=== PATIENT | male | born 1970 | race Caucasian/White ===

== ENCOUNTER 2017-03-22 22:42 | Emergency (ER) | payer MEDICARE ==
[~2017-03-22] VITALS: Ht 185.4 cm; Wt 105.8 kg
[~2017-03-22 22:42] MED LIST: IBUP600T26 PO; METH750T2 PO; PRED20 PO
[2017-03-22 22:45] VITALS: BP 174/100; PULSE 94; RESP 26; TEMP 98.5; O2SAT 99
[2017-03-22] MEDS ORDERED: NITROGLYCERIN 0.4 MG SL 25 TABS/BTL SL ONE (23:00)
[2017-03-22] MEDS ORDERED: SODIUM CHLORIDE 0.9% FLUSH 10 ML FLUSH IVF PRN (23:00)
[2017-03-22] MEDS ORDERED: ASPIRIN 325 MG TAB PO ONE (23:00)
[2017-03-22 23:07] LABS: AUTOMATED NEUTROPHIL # 7.7 TH/MM3 (1.8-7.7); BASOPHIL # 0.1 TH/MM3 (0-0.2); BASOPHIL % 0.7 % (0.0-2.0); EOSINOPHIL # 0.3 TH/MM3 (0-0.4); EOSINOPHIL % 2.2 % (0.0-4.0); HEMATOCRIT 47.5 % (39.0-51.0); LYMPH % 34.7 % (9.0-44.0); LYMPHOCYTE # 4.8 TH/MM3 (1.0-4.8); MEAN CELL VOLUME 89.6 FL (80.0-100.0); MEAN CORPUSCULAR HGB CONC 33.5 % (32.0-36.0); MONO % 6.8 % (0.0-8.0); NEUT % 55.6 % (16.0-70.0); PLATELET COUNT 244 TH/MM3 (150-450); RED CELL DISTRIBUTION WIDTH 13.8 % (11.6-17.2); WHITE BLOOD COUNT 13.8 TH/MM3 (4.0-11.0)
[2017-03-22 23:08] LABS: CHLORIDE 104 MEQ/L (98-107); POTASSIUM 3.5 MEQ/L (3.5-5.1); SODIUM (NA) 140 MEQ/L (136-145)
--- NOTE | 2017-03-22 23:08 | RADHPO ---
EXAM DATE/TIME: 03/22/2017 22:52 [place] COMPARISON: CHEST PA & LAT, February 23, 2015, 17:19. INDICATIONS : Shortness of breath, cough, and congestion. MEDICAL HISTORY : None. SURGICAL HISTORY : None. ENCOUNTER: Initial ACUITY: 3 days PAIN SCORE: 3/10 LOCATION: Bilateral chest FINDINGS: The lungs are clear without infiltrate, nodule, or mass. There is no appreciable pleural effusion fo r technique. Heart and mediastinum are unremarkable. CONCLUSION: No acute cardiopulmonary disease. Elizabeth Garcai MD on March 22, 2017 at 23:06 Board Certified Radiologist. This report was verified electronically.
[2017-03-22 23:11] LABS: ANION GAP 13 MEQ/L (5-15); BICARBONATE 23.3 MEQ/L (21.0-32.0); BLOOD UREA NITROGEN 11 MG/DL (7-18)
--- NOTE | 2017-03-22 23:13 | PD ---
HPI Chief Complaint: Respiratory Symptoms Time Seen by Provider: 22:47 Travel History International Travel<30 days: No Contact w/Intl Traveler<30days: No Traveled to known affect area: No History of Present Illness HPI 47 yo M c/o cough for 3 days leading to post-tussive emesis, generalized chest pressure of moderate severity, diaphoresis and dyspnea. He traveled to [place] about a week ago and upon return here developed his cough. Pt smokes cigarettes approx 10-20/daily. Sweats at home reported however denies COPD diagnosis. Phlegm is produced with cough. OTC cough medication was not helpful. No sick contacts. PFSH Past Medical History Diminished Hearing: No Kidney Stones: Yes ?: Not Social History Alcohol Use: Yes (Rare) Tobacco Use: Yes (1ppd) Substance Use: No Allergies-Medications (Allergen,Severity, Reaction): Coded Allergies: No Known Allergies (Unverified , 07/01/15) Reported Meds & Prescriptions Reported Meds & Active Scripts Active Guaifenesin-Codeine Liq 100-10 Mg/5 Ml Soln 10 Ml PO HS PRN Tessalon Perles (Benzonatate) 100 Mg Cap 200 Mg PO TID PRN Proair Hfa 8.5 GM Inh (Albuterol Sulfate) 90 Mcg/Act Aer 2 Puff INH Q6H PRN 108 mcg/actuation Azithromycin 250 Mg Tab 250 Mg PO DAILY 4 Days Prednisone 20 Mg Tab 40 Mg PO DAILY 4 Days Take 40 mg (2 tablets) daily for 5 days Ibuprofen 600 Mg Tab 600 Mg PO Q8H PRN Methocarbamol 750 Mg Tab 750 Mg PO Q8HR PRN Deltasone (Prednisone) 20 Mg Tab 20 Mg PO DIRECTED 2 TABS PO DAILY FOR 3 DAYS,THEN 1 TAB PO DAILY FOR 3 DAYS. Review of Systems Except as stated in HPI: all other systems reviewed are Neg General / Constitutional: Positive: Fever (hot sweats), Chills Cardiovascular: Positive: Chest Pain or Discomfort, Diaphoresis, No: Tachycardia Respiratory: Positive: Cough, Shortness of Breath Physical Exam Narrative GENERAL: 47 yo M, WNWD, moderate respiratory distress 2/2 coughing SKIN: Diaphoretic. Intact. HEAD: Atraumatic. Normocephalic. EYES: Pupils equal and round. No scleral icterus. No injection or drainage. ENT: No nasal bleeding or discharge. Mucous membranes pink and moist. NECK: Trachea midline. No JVD. CARDIOVASCULAR: Regular rate and rhythm. RESPIRATORY: Frequently coughing. Minimal tachypnea. No accessory muscle use. Lung sounds clear. GASTROINTESTINAL: Abdomen soft, non-tender, nondistended. Hepatic and splenic margins not palpable. MUSCULOSKELETAL: Extremities without clubbing, cyanosis, or edema. No obvious deformities. NEUROLOGICAL: Awake and alert. No obvious cranial nerve deficits. Motor grossly within normal limits. Five out of 5 muscle strength in the arms and legs. Normal speech. PSYCHIATRIC: Appropriate mood and affect; insight and judgment normal. Data Data Last Documented VS Vital Signs Date Time Temp Pulse Resp B/P Pulse Ox O2 Delivery O2 Flow Rate FiO2 03/22/17 23:27 98.3 78 22 140/84 98 Room Air VS reviewed Orders Electrocardiogram (03/22/17 22:47) Basic Metabolic Panel (Bmp) (03/22/17 22:47) Ckmb (Isoenzyme) Profile (03/22/17 22:47) Complete Blood Count With Diff (03/22/17 22:47) Magnesium (Mg) (03/22/17 22:47) Prothrombin Time / Inr (Pt) (03/22/17 22:47) Act Partial Throm Time (Ptt) (03/22/17 22:47) Troponin I (03/22/17 22:47) Chest, Single Ap (03/22/17 22:47) Ecg Monitoring (03/22/17 22:47) Bilateral Bp Monitoring (03/22/17 22:47) Iv Access Insert/Monitor (03/22/17 22:47) Oximetry (03/22/17 22:47) Oxygen Administration (03/22/17 22:47) Aspirin (Aspirin) (03/22/17 23:00) Sodium Chloride 0.9% Flush (Ns Flush) (03/22/17 23:00) Nitroglycerin Sl (Nitrostat Sl) (03/22/17 23:00) Guaifen-Cod 200-20 Mg/10ml Liq (Robituss (03/22/17 23:15) Albuterol-Ipratropium Neb (Duoneb Neb) (03/22/17 23:15) Benzonatate (Tessalon) (03/22/17 23:15) Methylprednisolone So Succ Inj (Solumedr (03/22/17 23:15) Sodium Chlor 0.9% 1000 Ml Inj (Ns 1000 M (03/22/17 23:15) Albuterol-Ipratropium Neb (Duoneb Neb) (03/22/17 23:30) Labs Laboratory Tests Test 03/22/17 22:50 White Blood Count 13.8 TH/MM3 Red Blood Count 5.30 MIL/MM3 Hemoglobin 15.9 GM/DL Hematocrit 47.5 % Mean Corpuscular Volume 89.6 FL Mean Corpuscular Hemoglobin 30.0 PG Mean Corpuscular Hemoglobin 33.5 % Concent Red Cell Distribution Width 13.8 % Platelet Count 244 TH/MM3 Mean Platelet Volume 7.8 FL Neutrophils (%) (Auto) 55.6 % Lymphocytes (%) (Auto) 34.7 % Monocytes (%) (Auto) 6.8 % Eosinophils (%) (Auto) 2.2 % Basophils (%) (Auto) 0.7 % Neutrophils # (Auto) 7.7 TH/MM3 Lymphocytes # (Auto) 4.8 TH/MM3 Monocytes # (Auto) 0.9 TH/MM3 Eosinophils # (Auto) 0.3 TH/MM3 Basophils # (Auto) 0.1 TH/MM3 CBC Comment DIFF FINAL Differential Comment Prothrombin Time 9.8 SEC Prothromb Time International 0.9 RATIO Ratio Activated Partial 25.8 SEC Thromboplast Time Sodium Level 140 MEQ/L Potassium Level 3.5 MEQ/L Chloride Level 104 MEQ/L Carbon Dioxide Level 23.3 MEQ/L Anion Gap 13 MEQ/L Blood Urea Nitrogen 11 MG/DL Creatinine 1.10 MG/DL Estimat Glomerular Filtration 71 ML/MIN Rate Random Glucose 221 MG/DL Calcium Level 8.8 MG/DL Magnesium Level 2.0 MG/DL Total Creatine Kinase 92 U/L Troponin I LESS THAN 0.02 NG/ML MDM Medical Decision Making Medical Screen Exam Complete: Yes Emergency Medical Condition: Yes Medical Record Reviewed: Yes Differential Diagnosis NSTEMI, unstable angina, coronary vasospasm, PE, PTX, aortic dissection, pericarditis, myocarditis, endocarditis, PNA, esophageal disease, aneurysm, musculoskeletal etiologies, anxiety, cocaine/sympathomimetic abuse Narrative Course EKG reveals a sinus rhythm at a rate of 87 no ischemic injury pattern Moderate improvement after 1 duoneb reported. 2 additional ordered at 2325. Marked improvement after 2nd and 3rd duonebs. Scripts as below. Pt cautioned regarding tobaccoism as presentation is considered at least partially related to smoking related lung disease with or without environmental/ allergenic and/or infectious process. CBC & BMP Diagram 03/22/17 22:50 Last 24 hours Impressions Chest X-Ray 03/22/17 2247 Signed Impressions: Service Date/Time: Wednesday, March 22, 2017 22:52 - CONCLUSION: No acute cardiopulmonary disease. Elizabeth Garcia MD Diagnosis Primary Impression: Cough Referrals: [facility] 2 days Additional Instructions: You have a choice when it comes to health care, and we are glad that you chose [facility]. Hopefully, we have met your expectations on today's visit. You are welcome to return to [facility] at any time, as we are committed to meeting the health care needs of our community. Med/Other Pt SpecificInfo: Prescription(s) given Scripts Guaifenesin-Codeine Liq 100-10 Mg/5 Ml Soln10 Ml PO HS PRN (COUGH) #1 BOTTLE Ref 0 Prov:Rony López MD 03/22/17 Benzonatate (Tessalon Perles)100 Mg [id number] Mg PO TID PRN (COUGH) #10 CAP Ref 0 Prov:Rony López MD 03/22/17 Albuterol 8.5 GM Inh (Proair Hfa 8.5 GM Inh)90 Mcg/Act Aer2 Puff INH Q6H PRN ( SHORTNESS OF BREATH) #1 INHALER Ref 0 108 mcg/actuation Prov:Rony López MD 03/22/17 Azithromycin 250 Mg [id number] Mg PO DAILY 4 Days Ref 0 Prov:Rony López MD 03/22/17 Prednisone 20 Mg Tab40 Mg PO DAILY 4 Days Ref 0 Take 40 mg (2 tablets) daily for 5 days Prov:Rony López MD 03/22/17 Disposition: 01 DISCHARGE HOME Condition: Stable Rony López MD Mar 22, 2017 23:13
[2017-03-22 23:15] LABS: APTT (PATIENT) 25.8 SEC (24.3-30.1); GLOMERULAR FILTRATION RATE 71 ML/MIN (>89); HEMO FLAGS DIFF FINAL; INTERNATIONAL NORMALIZED RATIO 0.9 RATIO; PROTHROMBIN TIME - PATIENT 9.8 SEC (9.8-11.6)
[2017-03-22] MEDS ORDERED: methylPREDNISolone SOD SUCC 125 MG/2 ML VIAL IV PUSH ONE (23:15)
[2017-03-22] MEDS ORDERED: SODIUM CHLOR 0.9% 1000 ML INJ 1,000 ML IV ONE (23:15)
[2017-03-22] MEDS ORDERED: BENZONATATE 100 MG CAP PO ONE (23:15)
[2017-03-22] MEDS ORDERED: guaiFENesin/CODEINE SYRUP 200 MG/20 MG/10 ML CUP PO ONE (23:15)
[2017-03-22] MEDS ORDERED: RESP: ALBUTEROL 2.5 MG/IPRATROPIUM 0.5 MG NEB (SCH) INH ONE (23:15)
[2017-03-22] MEDS: RESP: ALBUTEROL 2.5 MG/IPRATROPIUM 0.5 MG NEB (SCH) INH ×2 (23:26→23:38)
[2017-03-22 23:27] VITALS: BP 140/84; PULSE 78; RESP 22; TEMP 98.3; O2SAT 98
[2017-03-22 23:28] LABS: CREATINE KINASE 92 U/L (39-308)
[2017-03-22] MEDS ORDERED: PRED20 PO (23:35)
[2017-03-22] MEDS ORDERED: ALBUAER3 INH (23:35)
[2017-03-22] MEDS ORDERED: AZIT250T3 PO (23:35)
[2017-03-22] MEDS ORDERED: BENZ100 PO (23:36)
[2017-03-22] MEDS ORDERED: GUAI100S5 PO (23:58)
[2017-03-23 00:09] VITALS: BP 158/87
--- NOTE | 2017-03-23 15:04 | EKG ---
Date Performed: 03/22/2017 Time Performed: 22:53:30 PTAGE: 47 years EKG: Sinus rhythm NORMAL ECG NO PREVIOUS TRACING DOCTOR: Laci Melchor Interpretating Date/Time 03/23/2017 15:03:02
== END 2017-03-23 00:11 | disposition home or self-care (01) ==
LOC: PHED 22:42
DX: R05 Cough (principal); R07.89 Other chest pain; R06.02 Shortness of breath; F17.210 Nicotine dependence, cigarettes, uncomplicated
CPT/HCPCS: 71010; 80048; 82550; 83735; 84484; 85025; 85610; 85730; 93005; 94640; 94664; 96361; 96374; 99285; J2930; J7030